=== PATIENT | male | born 1985 | race Caucasian/White ===

== ENCOUNTER 2018-03-08 15:22 | Emergency (ER) | payer SELFPAY ==
[~2018-03-08] VITALS: Ht 175.3 cm; Wt 75.0 kg
[2018-03-08] MEDS ORDERED: AMOXICILLIN500 MG PO (17:52)
[2018-03-08 17:54] VITALS: BP 140/83
== END 2018-03-08 18:01 | disposition home or self-care (01) | DRG 607 ==
LOC: ED 15:22
DX: R22.31 Localized swelling, mass and lump, right upper limb (principal)

== ENCOUNTER 2024-04-11 06:54 | Inpatient (IN) | payer SELFPAY ==
[~2024-04-11] VITALS: Ht 175.3 cm; Wt 77.4 kg
[2024-04-11] VITALS (47 sets, daily range): BP systolic 53–124; BP diastolic 18–82
[~2024-04-11 06:54] MED LIST: AMOXICILLIN500 MG PO
--- NOTE | 2024-04-11 07:05 | NUR ---
pt amblatory to room for exam, slow steady gait
[2024-04-11] MEDS ORDERED: SODIUM CHLORIDE 0.9% 1,000 ML IV ONE (07:10)
[2024-04-11] MEDS ORDERED: ONDANSETRON HCl 4 MG/2 ML SDV IV ONE (07:10)
[2024-04-11] MEDS ORDERED: LACTATED RINGER'S 1,000 ML IV ONE ×2 (07:15)
[2024-04-11 07:56] LABS: BASO% 0.3 % (0-3); EOS% 0.1 % (0-8); IMMATURE GRANULOCYTES 3.2 % (0.0-5.0); LYMPH% 8.1 % (15-41); MEAN CELL VOLUME 90.8 fL CALC (80.0-100.0); MEAN CORPUSCULAR HGB 31.9 pG CALC (26.0-32.0); MEAN CORPUSCULAR HGB CONC 35.2 g/dL CAL (32.0-36.0); MONO% 4.3 % (2-13); NEUT# 17.57 thou/uL (1.82-7.42); RED BLOOD COUNT 5.64 mill/uL (4.70-6.10); RED CELL DISTRI WIDTH 13.3 % (11.5-15.5)
[2024-04-11 07:58] LABS: HEMATOCRIT 51.2 % (39.0-50.0)
--- NOTE | 2024-04-11 08:22 | NUR ---
PT RESTING IN BED LAYING ON SIDE WITH KNEES AND ARMS BENT. PT REPORTS THIS POSITION HELPS HIM BREATHE BETTER. THIS NURSE STATES UNDERSTANDING. PT HAS IV FLUIDS RUNNING. PTS BP IS LOW DUE TO POSITION.
[2024-04-11 09:16] LABS: ALBUMIN 4.4 g/dL (3.2-5.0); ALKALINE PHOSPHATASE 94 u/l (38-126); BILIRUBIN, TOTAL 0.7 mg/dL (0.2-1.3); BUN 17 mg/dL (9-20); BUN/CREATININE RATIO 9 (12-20 (CALC)); CHLORIDE 108 mmol/l (95-108); CREATININE 1.9 mg/dL (0.7-1.3); ESTIMATED GFR 46 ML/MIN (>=90 (CALC)); LIPASE 184 u/l (23-300); SGOT/AST 23 u/l (17-59); SODIUM 140 mmol/l (137-146)
[2024-04-11] MEDS ORDERED: cefTRIAXone SODIUM 2 GM in SODIUM CHLORIDE 0.9% 100 ML IV ONE (09:20)
[2024-04-11 09:25] LABS: ANION GAP 33 (6-22 (CALC)); CARBON DIOXIDE < 5 mmol/l (22-30); POTASSIUM 5.7 mmol/l (3.5-5.1)
[2024-04-11] MEDS ORDERED: INSULIN REGULAR (HUMAN) IN SOD 100 ML IV ONE (09:30)
[2024-04-11] MEDS ORDERED: INSULIN REGULAR (HUMAN) 100 UNIT/ML INJ IV ONE (09:30)
--- NOTE | 2024-04-11 09:33 | NUR ---
PT RESTING IN BED. VSS. PT DENIES ANY CURRENT NEEDS. PT EDUCATED ON HIS HOLD IN ER AN ICU PATIENT. PT STATES UNDERSTANDING.
[2024-04-11] MEDS ORDERED: MORPHINE SULFATE 4 MG/ML VIAL IV ONE (10:05)
[2024-04-11] MEDS ORDERED: POTASSIUM CHLORIDE IN NACL 1,000 ML IV PRN (10:20)
[2024-04-11] MEDS ORDERED: D5 1/2 NaCL W/KCL 20MEQ 1,000 ML IV PRN (10:20)
[2024-04-11] MEDS ORDERED: MAGNESIUM HYDROXIDE 30 ML UDC PO PRN (10:20)
[2024-04-11] MEDS ORDERED: ACETAMINOPHEN 325 MG/TAB PO PRN (10:20)
[2024-04-11] MEDS ORDERED: INSULIN REGULAR (HUMAN) IN SOD 100 ML IV PRN (10:20)
[2024-04-11] MEDS ORDERED: SODIUM CHLORIDE 0.45% 1,000 ML IV PRN (10:20)
[2024-04-11] MEDS ORDERED: DEXTROSE 5% w/NACL 0.45 1,000 ML IV PRN (10:20)
[2024-04-11] MEDS ORDERED: POTASSIUM CHLORIDE 20MEQ 100 ML IV PRN (10:20)
[2024-04-11 10:30] LABS: URINE BLOOD DIPSTICK Moderate (NEGATIVE); URINE GLUCOSE - DIPSTICK 500 mg/dL (NEGATIVE); URINE KETONE >=160 mg/dL (NEGATIVE); URINE LEUK ESTERASE Negative (NEGATIVE); URINE NITRITE - DIPSTICK Negative (Negative); URINE PROTEIN - DIPSTICK 100 mg/dL (NEG-TRACE); URINE UROBILINOGEN - DIPSTICK 0.2 E.U./dL (0.2)
[2024-04-11 10:32] LABS: URINE COLOR Yellow
--- NOTE | 2024-04-11 10:44 | NUR ---
DR ALLISON IN ROOM WITH PATIENT FOR ASSESSMENT. PT DENIES ANY CURRENT NEEDS.
[2024-04-11 10:47] LABS: URINE EPITHELIAL CELLS RARE EPI/hpf (0-FEW); URINE WBC 0-2 WBC/hpf (0-5)
[2024-04-11] MEDS ORDERED: ONDANSETRON HCl 4 MG/2 ML SDV IV PRN (10:50)
[2024-04-11 11:23] LABS: BUN 18 mg/dL (9-20); BUN/CREATININE RATIO 11 (12-20 (CALC)); CHLORIDE 112 mmol/l (95-108); CREATININE 1.7 mg/dL (0.7-1.3); ESTIMATED GFR 53 ML/MIN (>=90 (CALC)); SODIUM 142 mmol/l (137-146)
[2024-04-11] MEDS ORDERED: Pantoprazole Sodium 40 MG VIAL (Protonix) IV SCH (11:30)
[2024-04-11 11:31] LABS: ANION GAP 31 (6-22 (CALC)); CARBON DIOXIDE < 5 mmol/l (22-30); POTASSIUM 5.6 mmol/l (3.5-5.1)
--- NOTE | 2024-04-11 11:47 | NUR ---
DIRECTOR AT BEDSIDE DOING DIABETES EDUCATION.
--- NOTE | 2024-04-11 12:22 | NUR ---
PT RESTING IN BED. VSS. PT REPORTS FEELING MUCH BETTER.
--- NOTE | 2024-04-11 12:45 | NUR ---
RECIEVED SBAR REPORT FROM KIRK RN, PT AOX4 WITH NO COMPLAINTS, MOVED TO ER ROOM 15 AND THIS RN RESUMED CARE. PT IS ON AN INSULIN GTT, LAST GLUCOSE REPORTED 452.
--- NOTE | 2024-04-11 13:18 | NUR ---
PT RESTING IN BED, ICE CHIPS PROVIDE DTO WET MOUTH PER DR ALLISON STATIG IT WAS OKAY.
--- NOTE | 2024-04-11 14:30 | NUR ---
PT IS RESTING IN BED VISITING WITH HIS FAMILY BEDSIDE. PT GIVEN SOME WATER PER DR. ALLISON. PT DENIES NAUSEA AND VOMITING AND STATES " I FEEL SO MUCH BETTER THAN WHEN I CAME IN." PT IS STILL ON INSULIN GTT AND BEING CLOSELY MONITORED.
[2024-04-11 15:10] LABS: BUN 17 mg/dL (9-20); BUN/CREATININE RATIO 11 (12-20 (CALC)); CHLORIDE 113 mmol/l (95-108); CREATININE 1.5 mg/dL (0.7-1.3); ESTIMATED GFR 61 ML/MIN (>=90 (CALC)); SODIUM 139 mmol/l (137-146)
[2024-04-11 15:21] LABS: ANION GAP 25 (6-22 (CALC)); POTASSIUM 3.8 mmol/l (3.5-5.1)
[2024-04-11 15:22] LABS: CARBON DIOXIDE < 5 mmol/l (22-30)
[2024-04-11 18:43] LABS: CREATININE 1.1 mg/dL (0.7-1.3); POTASSIUM 3.7 mmol/l (3.5-5.1)
--- NOTE | 2024-04-11 19:30 | NUR ---
Pt assessed, BS checked , 297. insulin gtt going by irself in left wrist IV at 3units/hr , left AC IV has D51/2 ND plus 20K going at 125cc/hr, pt alox4 , voiding clkeatr yellow , no pain , no V or Nausea ., call [facility] wit[facility] reach all needs met. call [facility] reach. on cardiac nurse NSR. checking BS Q1 HR. BS logged in [facility] UNDER BS MONITORING .
[2024-04-11] MEDS ORDERED: ENOXAPARIN SODIUM 40 MG/0.4 ML SYR SC SCH (21:00)
--- NOTE | 2024-04-11 22:00 | NUR ---
BS checked , 244 at 2130, all needs met , insulin gtt at 3 , IVF at 125. andrea's mom called ER and phone portable given to pt to speak with his mom. labs to be drawn soon . all needs met .
[2024-04-11 22:46] LABS: CREATININE 0.9 mg/dL (0.7-1.3); POTASSIUM 3.5 mmol/l (3.5-5.1)
[2024-04-12] VITALS (15 sets, daily range): BP systolic 100–124; BP diastolic 59–83
--- NOTE | 2024-04-12 | NUR ---
Assessment unchanged, charting BS Q1 hr. IVf going at 125, insulin at 3 , spoke with Dr. Carter , plan to keep pt on ins gtt all night and fluids until 6 am labs , with goial of AGap closed and Bicarb ideally 18. pt resting comfortbaly. all needs met. alox4.
--- NOTE | 2024-04-12 02:00 | NUR ---
assessment unchanged, new bag IVF D5 1/2 NS + 20 K hung at 125cc/hr, insulin gtt a3 # , last BS 241, nect CH[facility] lab due at 0220, pt resting comfortaly. all needs met. Q1 hr rounding and BS sticks. NSR.
--- NOTE | 2024-04-12 02:44 | NUR ---
pt [place] drawn by lab, BS 188 , insulin gtt changed to 2 units/hr per protocol. awaiting lab results. pt calm and resting comfortbaly with eyes closed. all needs met urine emptied for 525. call [facility] reach , NSR on monitor.
[2024-04-12 03:00] LABS: CREATININE 0.9 mg/dL (0.7-1.3); POTASSIUM 3.1 mmol/l (3.5-5.1)
[2024-04-12] MEDS ORDERED: POTASSIUM CHLORIDE 20MEQ 100 ML IV SCH (03:45)
--- NOTE | 2024-04-12 04:07 | NUR ---
KEILY blanco REPLACEMEWNT FOR k 3.1 PER PROTOCOL, HUNG 20 k OVER 2 HRS PT COMPLAINING OF BRURING , ICE PACK TO iv SITE , k yED IN WITH FLUIEDS. REDUCED RATE TO 25CC/HR, ASSESSMENT UNCHAGED. INSULIN GTT AT 2 UNITS/HR, IVF AT 125CC. BS 171 .
--- NOTE | 2024-04-12 05:44 | NUR ---
Assessment unchanged. BS 138 insulin gtt reduced to 1.0 unit/hr per protocol running by itself left wrist. , 20K going at 25cc/hr , IVF D5 1/2 NS +20K running at 125cc/hr separate IV site. , LAC. pt resting comfortably with eyes closed , extra blankets provided. afebrile NSR. all needs met , call [facility] reach.
[2024-04-12 06:18] LABS: BASO% 0.1 % (0-3); EOS% 0.1 % (0-8); IMMATURE GRANULOCYTES 0.3 % (0.0-5.0); LYMPH% 10.8 % (15-41); MEAN CELL VOLUME 87.9 fL CALC (80.0-100.0); MEAN CORPUSCULAR HGB CONC 35.2 g/dL CAL (32.0-36.0); MONO% 10.1 % (2-13); NEUT# 9.72 thou/uL (1.82-7.42); NEUT% 78.6 % (42-76); RED BLOOD COUNT 4.62 mill/uL (4.70-6.10); RED CELL DISTRI WIDTH 12.7 % (11.5-15.5)
[2024-04-12 06:19] LABS: HEMATOCRIT 40.6 % (39.0-50.0); HEMOGLOBIN 14.3 g/dl (14.0-18.0)
[2024-04-12 06:28] LABS: ALBUMIN 3.7 g/dL (3.2-5.0); BILIRUBIN, TOTAL 0.9 mg/dL (0.2-1.3); CHOLESTEROL HDL RATIO 6.4 (<4.4 (CALC)); CREATININE 0.8 mg/dL (0.7-1.3); POTASSIUM 3.6 mmol/l (3.5-5.1); TOTAL PROTEIN 6.5 g/dL (6.3-8.2)
[2024-04-12] MEDS ORDERED: INSULIN DETEMIR 100 UNITS/ML SC SCH ×4 (06:35→21:00)
[2024-04-12] MEDS ORDERED: DEXTROSE 250 ML IV PRN ×3 (06:35→06:40)
[2024-04-12] MEDS ORDERED: INSULIN LISPRO 100 UNITS/ML ML SC SCH (07:00)
--- NOTE | 2024-04-12 07:51 | NUR ---
PATIENT LYING IN BED ON L SIDE D/T LOW BACK PAIN, MEDICATED ACCORDING TO EMAR. PATIENT ALERT AND ORIENTED X 4. LUNGS CLEAR TO ASCULTATION. BREATHING EVEN AND UNLABORED ON ROOM AIR. AFEBRILE 97.4. PATIENT GIVEN LEVEMIR, BUT DECLINED HUMALOG AT THIS TIME. GLU 155 AT 0730. INSULT GTT AT 1 UNIT/HR. DENIES CONCERNS AT THIS TIME. SAFETY MEASURES IN PLACE INCLUDING BED IN LOW POSITION AND CALL LIGHT RESTING IN R HAND. NO APPARENT DISTRESS NOTED. WILL CONTINUE WITH PLAN OF CARE.
[2024-04-12] MEDS ORDERED: cefTRIAXone SODIUM 2 GM in SODIUM CHLORIDE 0.9% 100 ML IV SCH (09:00)
--- NOTE | 2024-04-12 10:04 | NUR ---
PATIENT SITTING UP IN BED. LAB AND GRANDDFATHER AT BEDSIDE. DENIES CONCERNS AT THIS TIME. VITAL SIGNS STABLE. NO APPARENT DISTRESS NOTED. WILL CONTINUE TO MONITOR GLUCOSE LEVELS.
[2024-04-12 10:56] LABS: CREATININE 0.8 mg/dL (0.7-1.3); POTASSIUM 3.9 mmol/l (3.5-5.1)
[2024-04-12] MEDS ORDERED: SODIUM CHLORIDE 0.45% 1,000 ML IV PRN (11:20)
--- NOTE | 2024-04-12 11:49 | NUR ---
PATIENT SITTING IN HIGH FOWLS FOR LUNCH. SEVERAL FAMILY MEMBERS AT BEDSIDE. DENIES ISSUES OR CONCERNS AT THIS TIME. TEMP 97.7. NO APPARENT DISTRESS NOTED. WILL CONTINUE WITH PLAN OF CARE.
--- NOTE | 2024-04-12 14:27 | NUR ---
PATIENT ARRIVED TO CO VIA WHEELCHAIR TO THE ED TO ROOM 272. PATIENT A&OX4. BREATHING UNLABORED ON ROOM AIR. ASSESSMENT COMPLETED. FAMILY MEMBER AT BEDSIDE. PT STATED HE WOULD LIKE TO SHOWER; IV SITES CLEAN AND INTACT WELL COVERED FOR SHOWER. PERSONAL BELONGINGS PUT AWAY. 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 BED IN LOWEST POSITION. NO OTHER NEEDS AT THIS TIME.
[2024-04-12 15:39] LABS: CREATININE 0.8 mg/dL (0.7-1.3); POTASSIUM 3.2 mmol/l (3.5-5.1)
--- NOTE | 2024-04-12 20:00 | NUR ---
BEDSIDE SHIFT REPORT COMPLETED. RESP EVEN AND UNLABORED. NO C/O PAIN OR DISCOMFORT. CALL LIGHT IN REACH.
[2024-04-13] VITALS (7 sets, daily range): BP systolic 104–126; BP diastolic 65–82
--- NOTE | 2024-04-13 | NUR ---
RESTING IN BED, ALERT ORIENTED X4. DENIES PAIN OR DISCOMFORT. ACCU CHECK AT BEDTIME 250. MEDICATED WITH INSULIN PER SLIDING SCALE. CASE MANAGEMENT CONSULT FOR NEW DIAGNOSIS OF DM. CALL LIGHT IN REACH.
--- NOTE | 2024-04-13 03:57 | NUR ---
NO C/O NOTED. RESP EVEN AND UNLABORED. CALL LIGHT IN REACH. DENIES NEEDS. IV REMAINS PATENT. NO S/S OF INFILTRATION.
[2024-04-13 05:26] LABS: BASO% 0.4 % (0-3); EOS% 0.2 % (0-8); HEMATOCRIT 36.7 % (39.0-50.0); HEMOGLOBIN 13.5 g/dl (14.0-18.0); IMMATURE GRANULOCYTES 0.2 % (0.0-5.0); LYMPH% 46.1 % (15-41); MEAN CELL VOLUME 87.4 fL CALC (80.0-100.0); MEAN CORPUSCULAR HGB 32.1 pG CALC (26.0-32.0); MEAN CORPUSCULAR HGB CONC 36.8 g/dL CAL (32.0-36.0); MONO% 14.2 % (2-13); NEUT# 2.03 thou/uL (1.82-7.42); NEUT% 38.9 % (42-76); RED BLOOD COUNT 4.2 mill/uL (4.70-6.10); RED CELL DISTRI WIDTH 12.7 % (11.5-15.5)
[2024-04-13 05:34] LABS: ALBUMIN 3.2 g/dL (3.2-5.0); BILIRUBIN, TOTAL 0.8 mg/dL (0.2-1.3); CREATININE 0.7 mg/dL (0.7-1.3); MAGNESIUM 1.9 mg/dL (1.6-2.3); TOTAL PROTEIN 5.6 g/dL (6.3-8.2)
[2024-04-13 05:38] LABS: POTASSIUM 2.6 mmol/l (3.5-5.1)
[2024-04-13] MEDS ORDERED: DEXTROSE 250 ML IV PRN (06:15)
[2024-04-13] MEDS ORDERED: POTASSIUM CHLORIDE 20 MEQ/TAB PO ONE (06:15)
--- NOTE | 2024-04-13 06:19 | NUR ---
LAB CALLED WITH CRITICAL GLUCIOSE OF 54. RECHECKED WITH BEDSIDE MONITOR AND READING WAS 72. PATIENT WAS ASYMPTOMATIC. JUICE AND LIGHT SNACK GIVEN.
[2024-04-13] MEDS ORDERED: INSULIN LISPRO 100 UNITS/ML ML SC SCH (07:00)
[2024-04-13] MEDS ORDERED: POTASSIUM CHLORIDE 20MEQ 100 ML IV ONE (07:00)
--- NOTE | 2024-04-13 07:16 | NUR ---
PATIENT LAYING IN BED. PATIENT A&OX4 AND ABLE TO MAKE NEEDS KNOWN. PATIENT ABDOMEN SOFT AND NONTENDER, RESPIRATIONS EVEN AND UNLABORED. PATIENT DENIES ANY NEEDS AT THIS TIME. WILL CONTINUE TO MONITOR.
[2024-04-13] MEDS ORDERED: PANTOPRAZOLE SODIUM Sesquihydr 40 MG/TAB PO SCH (09:00)
[2024-04-13] MEDS ORDERED: INSULIN DETEMIR 100 UNITS/ML SC SCH (09:00)
[2024-04-13] MEDS ORDERED: POTASSIUM CHLORIDE 20 MEQ/PKT POWDER PO SCH (09:30)
[2024-04-13] MEDS ORDERED: Zaleplon 5 MG/CAP PO PRN (09:55)
[2024-04-13] MEDS ORDERED: methylPREDNISolone Sod Succ 40 MG/ML SDV IV SCH (11:00)
--- NOTE | 2024-04-13 11:59 | NUR ---
PATIENT LAYING IN BED. PATIENT DENIES ANY NEEDS AT THIS TIME. WILL CONTINUE TO MONITOR.
--- NOTE | 2024-04-13 16:06 | NUR ---
PATIENT LAYING IN BED. PATIENT DENIES ANY NEEDS AT THIS TIME. WILL CONTINUE TO MONITOR.
--- NOTE | 2024-04-13 20:00 | NUR ---
BEDSIDE SHIFT REPORT COMPLETED. RESP EVEN AND UNLABORED. RESTING IN BED, FAMILY AT BEDSIDE. CALL LIGHT IN REACH.
--- NOTE | 2024-04-14 | NUR ---
MEDICATED FOR BS OF 213. DENIES PAIN OR DISCOMFORT. OFFERED SNACK, DENIED. AMBULATORY WITH STEADY GAIT.
[2024-04-14 04:00] VITALS: BP 94/61
--- NOTE | 2024-04-14 04:00 | NUR ---
RESTING IN BED, ALERT ORIENTED X4. RESP EVEN AND UNLABORED. DENIES PAIN OR DISCOMFORT. CONTINUES ON ROOM AIR. SATS 98%. NO EDEMA. NO S/S OF HYPOGLYCEMIA.
[2024-04-14 04:14] VITALS: BP 94/61
[2024-04-14 05:05] LABS: HEMATOCRIT 40.1 % (39.0-50.0); HEMOGLOBIN 14.6 g/dl (14.0-18.0); IMMATURE GRANULOCYTES 0.4 % (0.0-5.0); LYMPH% 11.7 % (15-41); MEAN CELL VOLUME 87.4 fL CALC (80.0-100.0); MEAN CORPUSCULAR HGB 31.8 pG CALC (26.0-32.0); MEAN CORPUSCULAR HGB CONC 36.4 g/dL CAL (32.0-36.0); MONO% 3.2 % (2-13); NEUT# 4.19 thou/uL (1.82-7.42); NEUT% 84.7 % (42-76); RED BLOOD COUNT 4.59 mill/uL (4.70-6.10); RED CELL DISTRI WIDTH 12.3 % (11.5-15.5)
[2024-04-14 05:25] LABS: ALBUMIN 3.4 g/dL (3.2-5.0); BILIRUBIN, TOTAL 0.9 mg/dL (0.2-1.3); CREATININE 0.7 mg/dL (0.7-1.3); TOTAL PROTEIN 5.8 g/dL (6.3-8.2)
[2024-04-14 05:27] LABS: POTASSIUM 3.6 mmol/l (3.5-5.1)
[2024-04-14] MEDS ORDERED: METFORMIN500 M2 PO (06:47)
[2024-04-14 07:17] VITALS: BP 110/70
[2024-04-14] MEDS ORDERED: ACCU-CHEK AVIVA PLU1 XX (07:19)
[2024-04-14] MEDS ORDERED: ACCU-CHEK FASTCLIX L XX (07:20)
[2024-04-14] MEDS ORDERED: INSULIN XX (07:22)
[2024-04-14] MEDS ORDERED: ACCU-CHEK AVIVAP100 XX (07:24)
--- NOTE | 2024-04-14 07:49 | NUR ---
PATIENT SITTING UP IN BED EATING BREAKFAST. ASSESSMENT COMPLETED. PATIENT ALERT AND ORIENTED X 4. DENIES PAIN AT THIS TIME. LUNGS CLEAR TO ASCULTATION. BREATHING EVEN AND UNLABORED ON ROOM AIR. DENIES N/V. LAST BM WAS 04/11, BUT PATIENT HAS NO CONCERNS HE "HAS NOT BEEN EATING A LOT". DENIES ANY ADDITIONAL CONCERNS. SAFETY MEASURES IN PLACE INCLUDING BED IN LOW POSITION AND CALL LIGHT RESTING IN CHAIR NEXT TO PATIENT. NO APPARENT DISTRESS NOTED. WILL CONTINUE WITH PLAN OF CARE.
[2024-04-14] MEDS ORDERED: LEVEMIR100 UNIT SC ×2 (09:56)
--- NOTE | 2024-04-16 13:10 | NUR ---
dISCHARGE FOLLOW UP CALL COMPLETED 04/16/24. pT STATES HE IS DOING WELL AND HAS BEEN MONITORING HIS BLOOD SUGARS REGULARLY. pT IS TAKING PRESCRIBED MEDICATION DIRECTED. hE IS WORKING TO ESTABLISH WITH A pcp AND WILL BE SURE TO MAKE A FOLLOW UP APPT WITH SOMEONE SOON. nO NEEDS OR CONCERNS AT THIS TIME. pT ASKED FOR ASSISTANCE WITH CREATING A PATIENT PORTAL ACCT. tHIS WAS DONE FOR PATIENT. nO OTHER NEEDS VERBALIZED AT THIS TIME.
== END 2024-04-14 12:50 | disposition home or self-care (01) | DRG 638 ==
LOC: ED 06:54 → ED-I 07:55 → ED 10:25 → ED-I 10:26 → MS2 04-12 14:14
PROVIDERS: Family Medicine; ADMIT Student in an Organized Health Care Education/Training Program; ATTEND Student in an Organized Health Care Education/Training Program
DX: E11.10 Type 2 diabetes mellitus with ketoacidosis without coma (principal); N17.9 Acute kidney failure, unspecified; E86.0 Dehydration; E86.1 Hypovolemia; D72.829 Elevated white blood cell count, unspecified; E11.649 Type 2 diabetes mellitus with hypoglycemia without coma; E87.6 Hypokalemia; Z83.3 Family history of diabetes mellitus; Z20.822 Contact with and (suspected) exposure to COVID-19
CPT/HCPCS: J1650; J2470